=== PATIENT | female | born 1995 | race American Indian/Alaskan Native ===

== ENCOUNTER 2018-10-10 23:02 | Emergency (ER) | payer OTHER ==
[2018-10-10 23:09] VITALS: BP 122/77
[2018-10-10] MEDS ORDERED: ULTRAM PO ONE (23:35)
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
== END 2018-10-11 00:57 | disposition home or self-care (01) ==
LOC: ED 23:02
DX: S16.1XXA Strain of muscle, fascia and tendon at neck level, initial encounter (principal); S39.012A Strain of muscle, fascia and tendon of lower back, initial encounter; F17.200 Nicotine dependence, unspecified, uncomplicated; V49.49XA Driver injured in collision with other motor vehicles in traffic accident, initial encounter; Y93.89 Activity, other specified; Y92.89 Other specified places as the place of occurrence of the external cause; Y99.8 Other external cause status
CPT/HCPCS: 72040

== ENCOUNTER 2019-07-19 17:32 | Emergency (ER) | payer OTHER ==
[2019-07-19 18:12] VITALS: BP 106/73
[2019-07-19] MEDS ORDERED: IBUPROFEN 600 MG TAB PO ONE (20:16)
[2019-07-19] MEDS ORDERED: ACETAMINOPHEN 500 MG TAB PO ONE (20:16)
[2019-07-19 20:36] LABS: Bilirubin,Urine NEG (Negative); Blood,Urine SM (Negative); Color,Urine Yellow (Yellow); HCG Qualitative,Urine Negative (Negative); Mucus,Urine 3+ /HPF; Protein,Urine <15 mg/dL mg/dL (Negative)
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
== END 2019-07-19 22:35 | disposition home or self-care (01) ==
LOC: ED 17:32
DX: S29.012A Strain of muscle and tendon of back wall of thorax, initial encounter (principal); M62.830 Muscle spasm of back; M62.838 Other muscle spasm; Z79.899 Other long term (current) drug therapy; V49.49XA Driver injured in collision with other motor vehicles in traffic accident, initial encounter; Y92.410 Unspecified street and highway as the place of occurrence of the external cause; Y93.89 Activity, other specified; Y99.8 Other external cause status
CPT/HCPCS: 72040; 72072; 72100; 81001; 81025